=== PATIENT | female | born 1985 | race Caucasian/White ===

== ENCOUNTER 2016-12-14 07:46 | Day surgery (SDC) | payer BC, OTHER ==
[2016-12-13 15:13] VITALS: Ht 152.4 cm; Wt 50.0 kg
[~2016-12-14] VITALS: Ht 152.4 cm; Wt 50.0 kg
[2016-12-14] VITALS (15 sets, daily range): BP systolic 100–115; BP diastolic 62–74; PULSE 72–94; RESP 12–20
[~2016-12-14 07:46] MED LIST: ABX FOR UTI; PREN1TAB49
--- NOTE | 2016-12-14 08:08 | PREOPHP ---
DATE OF ADMISSION: 12/14/2016 HISTORY: A 31-year-old female patient with a long history of nasal sinus problems seen in the offic e July 2016, noted to have obstructive septal deviation with turbinate hypertrophy treated with Flonase, Benadryl and Claritin without relief. A CAT scan of the sinuses was unremarkable. The tanya infante now admitted to the hospital for corrective nasal surgery. ALLERGIES: NONE. DAILY MEDICATION: Zoloft. MEDICAL CONDITIONS: Depression prior surgery. PRIOR SURGERY, CLOTTING DISORDERS, HABITS, FAMILY HISTORY, REVIEW OF SYSTEMS: Negative. PHYSICAL EXAMINATION: GENERAL: Well-developed, well-nourished female patient in no acute distress. HEAD: Normocephalic. No masses or deformities. EARS: Ears and tympanic membranes are normal. NOSE: Obstructive septal deviation with turbinate hypertrophy. Oropharynx is clear. NECK: No masses or adenopathy. CHEST: Clear to P and A. HEART: Regular sinus rhythm without murmur. ABDOMEN: Soft, bowel sounds normal. No masses or megaly. EXTREMITIES: Full range of motion without deformity. NEUROLOGIC: Physiologic. PELVIC AND RECTAL: Not done. IMPRESSION: Septal deviation with turbinate hypertrophy. RECOMMENDATIONS: Admit for surgery. Dictated By: JOSE ROMO/BRENNON Conf#: [id number] DID#: [id number]
--- NOTE | 2016-12-14 08:40 | HPN ---
Date/Time of Note Date/Time of Note DATE: 12/14/16 TIME: 08:39 Interval H&P Admission Note Pt. seen H&P reviewed: No system changes JOSE NARANJO MD Dec 14, 2016 08:40
[2016-12-14] MEDS ORDERED: BACITRACIN/POLYMYXIN 28.35 GM OINT TOP ONE (08:42)
[2016-12-14] MEDS ORDERED: LIDOCAINE 1%/EPI (MDV) 20 ML INJ ONE (08:42)
[2016-12-14] MEDS ORDERED: COCAINE 4% 4 ML TOP ONE (08:42)
[2016-12-14] MEDS ORDERED: NEOSTIGMINE 3 MG/3 ML SYRINGE ONE (08:50)
[2016-12-14] MEDS ORDERED: MEPERIDINE 100 MG INJ ONE (08:50)
[2016-12-14] MEDS ORDERED: SUCCINYLCHOLINE CHLORIDE 100 MG/5 ML SYG IV ONE (08:50)
[2016-12-14] MEDS ORDERED: PROPOFOL 20 ML ONE (08:50)
[2016-12-14] MEDS ORDERED: GLYCOPYRROLATE 0.4 MG INJ ONE (08:50)
[2016-12-14] MEDS ORDERED: ROCURONIUM 50 MG INJ ONE (08:50)
[2016-12-14] MEDS ORDERED: LIDOCAINE 2% (SDV) 5 ML INJ ONE (08:50)
[2016-12-14] MEDS ORDERED: DIPHENHYDRAMINE 50 MG INJ IV PRN (09:00)
[2016-12-14] MEDS ORDERED: LABETALOL HCL 20MG INJ IV PRN (09:00)
[2016-12-14] MEDS ORDERED: morphine (1 MG/ML) 10ML SYRINGE IV PRN ×2 (09:00)
[2016-12-14] MEDS ORDERED: METOCLOPRAMIDE 10 MG INJ IV PRN (09:00)
[2016-12-14] MEDS ORDERED: hydrALAzine 20 MG INJ IV PRN (09:00)
[2016-12-14] MEDS ORDERED: MEPERIDINE 25 MG INJ IV PRN (09:00)
[2016-12-14] MEDS ORDERED: HYDROmorphONE (0.2 MG/ML) 10ML SYG IV PRN ×2 (09:00)
[2016-12-14] MEDS ORDERED: ONDANSETRON 4 MG INJ IV PRN (09:00)
[2016-12-14] MEDS ORDERED: FENTAnyl 50 MCG/ML VIAL IV PRN (09:00)
[2016-12-14] MEDS ORDERED: EPHEDrine SULFATE 50 MG/5 ML SYG IV PRN (09:00)
[2016-12-14] MEDS ORDERED: MIDAZOLAM 1 MG/ML 2 ML INJ IV PRN (09:00)
[2016-12-14] MEDS ORDERED: SERT100T PO (09:10)
[2016-12-14] MEDS ORDERED: ONDANSETRON 4 MG INJ ONE (09:31)
[2016-12-14] MEDS ORDERED: METOCLOPRAMIDE 10 MG INJ ONE (09:31)
[2016-12-14] MEDS: FENTAnyl 50 MCG/ML VIAL IV PRN ×2 (10:06→10:14)
[2016-12-14] MEDS ORDERED: HYDROCODONE/APAP (7.5/325) TAB PO PRN (10:30)
--- NOTE | 2016-12-14 12:34 | OPR ---
DATE OF OPERATION: PREOPERATIVE DIAGNOSIS: Septal deviation with turbinate hypertrophy. POSTOPERATIVE DIAGNOSIS: Septal deviation with turbinate hypertrophy. PROCEDURE PERFORMED: Septoplasty with turbinate reduction. OPERATION: Patient brought to the operating room under parenteral sedation, general oral endotrache al anesthesia, with the patient in the supine position. Sterile sheets and drapes applied. Nose an esthetized topically with 5% cottonoid cocaine and Xylocaine 1% epinephrine 1:100,000. The inferior turbinate bones were lightly crushed and outfractured. A left septal incision was made. Septal mu coperichondrial and mucoperiosteal flaps were elevated bilaterally. The quadrilateral was detached from the crest of the premaxilla and from the bony cartilaginous junction. Strips of cartilage were removed inferiorly and posteriorly and the remaining cartilage was vertically through and through c ut to correct cartilaginous obstruction. The bony septum was midline. The septal compartment was t hen suctioned and the incision closed with interrupted 4-0 chromic. The nose was packed with bacitr acin impregnated nasal porous sponge to complete the procedure. A drip pad was applied. The patien t was awakened and extubated in the operating room and returned to recovery in excellent condition. ESTIMATED BLOOD LOSS: Nil. COMPLICATIONS: None. Dictated By: JOSE ROMO/BRENNON Conf#: [id number] DID#: [id number]
== END 2016-12-14 12:22 | disposition home or self-care (01) ==
LOC: SDS 07:46
PROVIDERS: ATTEND Otolaryngology Otolaryngology/Facial Plastic Surgery
DX: J34.2 Deviated nasal septum (principal); J34.3 Hypertrophy of nasal turbinates
CPT/HCPCS: 30140; 30520; 88300; J0330; J2175; J2250; J2405; J2710; J2765; J3010; Z7512; Z7610